=== PATIENT | female | born 1960 | race Caucasian/White ===

== ENCOUNTER 2019-02-17 10:09 | Outpatient (CLI) | payer MEDICAID, SELFPAY ==
--- NOTE | 2019-02-17 10:14 | USCV_ITS ---
Antonio Danielle Age: 58 Gender: F : 1960 Exam Date: 02/17/2019 10:10 Ordering Phys: Jaxon James MD ([email or web address]) Technologist: Courtney Butler Exam Location: [facility] – [place] Indication: KNOWN AAA RECHECK HISTORY: Recheck of AAA Diameter (cm) AP x Transverse x Length Velocity (cm/s) Waveform Prox Aorta: 2.19 x 1.77 x 50.60 Mid Aorta: 4.01 x 3.39 x 6.69 34.65 Distal Aorta: 3.24 x 3.42 x 4.38 53.40 Right Iliac Prox: 0.81 x 0.84 x 188.50 Left Iliac Prox: 0.78 x 0.90 x 117.70 Stent Prox Landing x x Aneurysmal Sac Max x x Lt Lat Sac Dim Rt Lat Sac Dim Stent Dist Landing x x Right Iliac Stent x x Left Iliac Stent x x Right Renal Art Left Renal Art FINDINGS: Bilobed AAA measures 4.0 x 3.4cm in the mid aorta and 3.2 x 3.4cm in the distal aorta. Moderate atheromatous disease. CONCLUSIONS Bilobed AAA ucnhanged since CT 01/01/19 Phillip Jackson MD (Electronically Signed) Final Date: 17 February 2019 16:39 S
== END 2019-02-17 10:10 | disposition home or self-care (01) ==
LOC: RAD 10:11
PROVIDERS: Family Provider Nurse Practitioner Family; PCP Nurse Practitioner Family; Visit Provider Internal Medicine Cardiovascular Disease
DX: I71.4 Abdominal aortic aneurysm, without rupture (principal)
CPT/HCPCS: 93978

== ENCOUNTER → 2019-04-24 11:26 | Outpatient (BNVA) | payer MEDICAID, SELFPAY | PROVIDERS: Family Provider Nurse Practitioner Family; PCP Nurse Practitioner Family; Visit Provider Nurse Practitioner Family | DX: R91.1 Solitary pulmonary nodule (principal); E03.9 Hypothyroidism, unspecified; E55.9 Vitamin D deficiency, unspecified; Z79.899 Other long term (current) drug therapy; E78.2 Mixed hyperlipidemia; I10 Essential (primary) hypertension | CPT/HCPCS: 80053; 80061; 81001; 82306; 83036; 84443; 85025 ==

== ENCOUNTER → 2019-04-29 13:10 | Outpatient (BNVA) | payer MEDICAID, SELFPAY | PROVIDERS: Family Provider Nurse Practitioner Family; PCP Nurse Practitioner Family; Visit Provider Otolaryngology | DX: K13.79 Other lesions of oral mucosa (principal); F17.210 Nicotine dependence, cigarettes, uncomplicated | CPT/HCPCS: 99203; 99214 ==

== ENCOUNTER 2019-06-13 13:15 | Outpatient (CLI) | payer MEDICAID, SELFPAY ==
--- NOTE | 2019-06-13 13:30 | CT_ITS ---
WS: [id number] CT CHEST TECHNIQUE: Noncontrast CT of the chest with coronal and sagittal reformatted images. CLINICAL INFORMATION: lung nodule COMPARISON: CTA chest October 21, [address] abdomen pelvis January 01, 2019 DLP: 565.[address] scans at [facility] use at least one of these dose optimization techniques: automat ed exposure control; mA and/or kV adjustment per patient size (includes targeted exams where dose is matched to clinical indication); or iterative reconstruction. FINDINGS: Again seen is the noncalcified subpleural pulmonary nodule in the right lung base measuring 8 mm. Thi s is unchanged since January 01, 2019 but new from 2014. Previously described right lower lobe infil trates have improved small amount of residual groundglass infiltrate/slight hazy atelectasis. No cons olidation. Additional noncalcified subpleural pulmonary nodules in the superior segment right lower lobe measuri ng 6 mm which is stable since October 21, 2014. Additional right lower lobe subpleural pulmonary no dule measuring 5.3 mm was not present in 2014. 2-3 additional noncalcified 3 to 4 mm hazy groundglass nodules in the super segment left lower lobe a long the fissure. Moderate chronic emphysematous changes. No other suspicious pulmonary opacities. No mediastinal or hi lar lymphadenopathy. Sternotomy. Normal caliber thoracic aorta. Calcification. Coronary calcification . Normal endobronchial tree. Adrenal glands are normal. Right renal cortical atrophy. Partially visua lized aneurysmal abdominal aorta described on the CT abdomen pelvis January 01, 2019. CT/CT chest wo con [id number] IMPRESSION: 1. 3 noncalcified subpleural pulmonary nodules one in the superior segment rig ht lower lobe measuring 6 mm with additional nodules in the right lower lobe po steriorly measuring 8 mm. Additional right lower lobe subpleural nodule measuri ng 5.3 mm. Recommend 6 month follow-up. 2. 2-3 additional noncalcified 3 to 4 mm hazy groundglass nodules in the super segment left lower lobe along the fissure. Recommend 6 month follow-up. 3. Improved right lower lobe infiltrate with a small amount of residual ground glass opacities/atelectasis. 4. No mediastinal or hilar lymphadenopathy. 5. Aneurysmal upper abdominal aorta described on the prior CT abdomen pelvis. .
== END 2019-06-13 13:16 | disposition home or self-care (01) ==
LOC: RADWPI 13:18
PROVIDERS: Family Provider Nurse Practitioner Family; PCP Nurse Practitioner Family; Visit Provider Nurse Practitioner Family
DX: R91.1 Solitary pulmonary nodule (principal); I71.4 Abdominal aortic aneurysm, without rupture
CPT/HCPCS: 71250

== ENCOUNTER → 2019-06-23 12:05 | Outpatient (BNVA) | payer MEDICAID, SELFPAY | PROVIDERS: Family Provider Nurse Practitioner Family; PCP Nurse Practitioner Family; Visit Provider Nurse Practitioner Family | DX: K13.79 Other lesions of oral mucosa (principal); E03.9 Hypothyroidism, unspecified; I10 Essential (primary) hypertension; B35.1 Tinea unguium | CPT/HCPCS: 80053; 84443; 85025 ==

== ENCOUNTER → 2019-07-10 07:33 | Outpatient (BNVA) | payer MEDICAID, SELFPAY | PROVIDERS: Family Provider Nurse Practitioner Family; PCP Nurse Practitioner Family; Visit Provider Nurse Practitioner Psychiatric/Mental Health | DX: F33.1 Major depressive disorder, recurrent, moderate (principal); F41.1 Generalized anxiety disorder; F12.90 Cannabis use, unspecified, uncomplicated; F17.210 Nicotine dependence, cigarettes, uncomplicated | CPT/HCPCS: 99214 ==

== ENCOUNTER → 2019-07-11 10:19 | Outpatient (BNVA) | payer MEDICAID, SELFPAY | PROVIDERS: Family Provider Nurse Practitioner Family; PCP Nurse Practitioner Family; Visit Provider Nurse Practitioner Family | DX: N39.0 Urinary tract infection, site not specified (principal); I10 Essential (primary) hypertension | CPT/HCPCS: 36415; 81001 ==

== ENCOUNTER 2019-07-14 15:15 | Outpatient (CLI) | payer MEDICAID, SELFPAY ==
--- NOTE | 2019-07-14 15:19 | US_ITS ---
WS: [id number] RENAL ULTRASOUND HISTORY: CHRONIC KIDNEY DISEASE STAGE 4 COMPARISON: 11/08/2018 TECHNIQUE: 2-D and color Doppler imaging of the kidney submitted. Right kidney: 7.8 cm x 3.5 cm x 3.6 cm. Mild atrophy of the RIGHT kidney with cortical thinning. Echogenicity is increased. Left kidney: 9.5 cm x 4.1 cm x 4.3 cm. Mild atrophy of the kidney. No hydronephrosis. There is increased echogenicity throughout the kidney. Simple cyst from the inferior pole measures 1.6 x 1.6 x 1.6 cm. Aorta: Abdominal aortic aneurysm with a maximum diameter of 3.8 cm. Aneurysm has been previously desc ribed. Urinary Bladder: Nondistended. US/ renal BI* [id number] IMPRESSION: Mild renal atrophy and mild cortical thinning. Similar to the prior study from 11/08/2018. Known abdominal aortic aneurysm.
== END 2019-07-14 15:16 | disposition home or self-care (01) ==
LOC: RAD 15:17
PROVIDERS: Family Provider Nurse Practitioner Family; PCP Nurse Practitioner Family; Visit Provider Internal Medicine Nephrology
DX: N18.4 Chronic kidney disease, stage 4 (severe) (principal); N26.1 Atrophy of kidney (terminal); I71.4 Abdominal aortic aneurysm, without rupture
CPT/HCPCS: 76770; 81001

== ENCOUNTER → 2019-08-20 07:39 | Outpatient (BNVA) | payer MEDICAID, SELFPAY | PROVIDERS: Family Provider Nurse Practitioner Family; PCP Nurse Practitioner Family; Visit Provider Nurse Practitioner Psychiatric/Mental Health | DX: F33.1 Major depressive disorder, recurrent, moderate (principal); F41.1 Generalized anxiety disorder; F12.90 Cannabis use, unspecified, uncomplicated; F17.210 Nicotine dependence, cigarettes, uncomplicated | CPT/HCPCS: 99214 ==

== ENCOUNTER → 2019-09-25 12:07 | Outpatient (BNVA) | payer MEDICAID, SELFPAY | PROVIDERS: Family Provider Nurse Practitioner Family; PCP Nurse Practitioner Family; Visit Provider Nurse Practitioner Family | DX: I12.9 Hypertensive chronic kidney disease with stage 1 through stage 4 chronic kidney disease, or unspecified chronic kidney disease (principal); N18.4 Chronic kidney disease, stage 4 (severe); E55.9 Vitamin D deficiency, unspecified; E78.2 Mixed hyperlipidemia; E03.9 Hypothyroidism, unspecified | CPT/HCPCS: 80053; 80061; 82306; 83036; 84443; 85025 ==

== ENCOUNTER → 2019-10-01 07:33 | Outpatient (BNVA) | payer MEDICAID, SELFPAY | PROVIDERS: Family Provider Nurse Practitioner Family; PCP Nurse Practitioner Family; Visit Provider Nurse Practitioner Psychiatric/Mental Health | DX: F33.1 Major depressive disorder, recurrent, moderate (principal); F41.1 Generalized anxiety disorder; F12.90 Cannabis use, unspecified, uncomplicated; F17.210 Nicotine dependence, cigarettes, uncomplicated; F90.2 Attention-deficit hyperactivity disorder, combined type | CPT/HCPCS: 99213 ==

== ENCOUNTER → 2019-12-24 07:25 | Outpatient (BNVA) | payer MEDICAID, SELFPAY | PROVIDERS: Family Provider Nurse Practitioner Family; PCP Nurse Practitioner Family; Visit Provider Nurse Practitioner Psychiatric/Mental Health | DX: F33.1 Major depressive disorder, recurrent, moderate (principal); F41.1 Generalized anxiety disorder; F12.90 Cannabis use, unspecified, uncomplicated; F17.210 Nicotine dependence, cigarettes, uncomplicated | CPT/HCPCS: 99213 ==

== ENCOUNTER → 2020-03-19 09:02 | Outpatient (BNVA) | payer MEDICAID, SELFPAY | PROVIDERS: Family Provider Nurse Practitioner Family; PCP Nurse Practitioner Family; Visit Provider Nurse Practitioner Psychiatric/Mental Health | DX: F33.1 Major depressive disorder, recurrent, moderate (principal); F41.1 Generalized anxiety disorder; F12.90 Cannabis use, unspecified, uncomplicated; F17.210 Nicotine dependence, cigarettes, uncomplicated | CPT/HCPCS: 99213 ==

== ENCOUNTER → 2020-06-11 07:33 | Outpatient (BNVA) | payer MEDICAID, SELFPAY | PROVIDERS: Family Provider Nurse Practitioner Family; PCP Nurse Practitioner Family; Visit Provider Nurse Practitioner Psychiatric/Mental Health | DX: F33.1 Major depressive disorder, recurrent, moderate (principal); F41.1 Generalized anxiety disorder; F12.90 Cannabis use, unspecified, uncomplicated; F17.210 Nicotine dependence, cigarettes, uncomplicated | CPT/HCPCS: 99214 ==

== ENCOUNTER → 2020-08-11 11:24 | Outpatient (BNVA) | payer MEDICAID, SELFPAY | PROVIDERS: Family Provider Nurse Practitioner Family; PCP Nurse Practitioner Family; Visit Provider Nurse Practitioner Family | DX: E78.2 Mixed hyperlipidemia (principal); N39.0 Urinary tract infection, site not specified; I10 Essential (primary) hypertension; Z79.899 Other long term (current) drug therapy; E55.9 Vitamin D deficiency, unspecified; E03.9 Hypothyroidism, unspecified | CPT/HCPCS: 80053; 80061; 81003; 82306; 83036; 84443; 85025; 87086 ==

== ENCOUNTER → 2020-09-07 07:10 | Outpatient (BNVA) | payer MEDICAID, SELFPAY | PROVIDERS: Family Provider Nurse Practitioner Family; PCP Nurse Practitioner Family; Visit Provider Nurse Practitioner Psychiatric/Mental Health | DX: F33.1 Major depressive disorder, recurrent, moderate (principal); F41.1 Generalized anxiety disorder; F12.90 Cannabis use, unspecified, uncomplicated; F17.210 Nicotine dependence, cigarettes, uncomplicated | CPT/HCPCS: 99214 ==

== ENCOUNTER 2020-11-17 08:44 | Outpatient (CLI) | payer MEDICAID, SELFPAY ==
[2020-11-17 10:07] LABS: Blood Urea Nitrogen 22 mg/dL (6-20); Glomerular Filtration Rate 28.9 mL/min (90-130)
== END 2020-11-17 08:45 | disposition home or self-care (01) ==
PROVIDERS: PCP Nurse Practitioner Family; Visit Provider Internal Medicine Cardiovascular Disease
DX: Z01.812 Encounter for preprocedural laboratory examination (principal)
CPT/HCPCS: 82565; 84520

== ENCOUNTER → 2020-12-07 08:14 | Outpatient (BNVA) | payer MEDICAID, SELFPAY | PROVIDERS: Family Provider Nurse Practitioner Family; PCP Nurse Practitioner Family; Visit Provider Nurse Practitioner Psychiatric/Mental Health | DX: F33.1 Major depressive disorder, recurrent, moderate (principal); F41.1 Generalized anxiety disorder; F12.90 Cannabis use, unspecified, uncomplicated; F17.210 Nicotine dependence, cigarettes, uncomplicated | CPT/HCPCS: 99214 ==

== ENCOUNTER 2020-12-13 07:47 | Outpatient (CLI) | payer MEDICAID, SELFPAY ==
--- NOTE | 2020-12-13 08:00 | USCV_ITS ---
Danielle Alvarez Age: 60 Gender: F : 1960 Exam Date: 12/13/2020 07:59 Ordering Phys: Rosalinda Cano Technologist: Berna Bennett Exam Location: [facility] – [place] Indication: AAA Without rupture HISTORY: Diameter (cm) AP x Transverse x Length Velocity (cm/s) Waveform Prox Aorta: 3.08 x 3.88 x 59.00 Mid Aorta: 4.44 x 5.13 x 7.93 23.00 Distal Aorta: 3.65 x 4.35 x 87.60 Right Iliac Prox: 0.76 x 0.71 x 154.80 Left Iliac Prox: 0.69 x 1.05 x 92.30 Stent Prox Landing x x Aneurysmal Sac Max x x Lt Lat Sac Dim Rt Lat Sac Dim Stent Dist Landing x x Right Iliac Stent x x Left Iliac Stent x x Right Renal Art Left Renal Art FINDINGS: Comparison:. 02/18/20. Bilobe AAA with mild increase in diameter since the prior exam. Mild eccentric soft plaque within the aorta. Mid aorta dilatation measeures 4.4 x 5.1 cm. Distal aorta dilatation measures 3.7 x 4.4 cm. No iliac artery aneurysm. CONCLUSIONS Bilobed AAA with mild increase in size since the prior exam. Maximum diameter of 4.[address] Alejandra Denise DO (Electronically Signed) Final Date: 13 December 2020 08:27 S
== END 2020-12-13 07:48 | disposition home or self-care (01) ==
LOC: US 07:49
PROVIDERS: PCP Nurse Practitioner Family; Visit Provider Nurse Practitioner Family
DX: I71.4 Abdominal aortic aneurysm, without rupture (principal)
CPT/HCPCS: 93978

== ENCOUNTER → 2021-01-20 11:54 | Outpatient (BNVA) | payer MEDICAID, SELFPAY | PROVIDERS: PCP Nurse Practitioner Family; Visit Provider Nurse Practitioner Family | DX: E03.9 Hypothyroidism, unspecified (principal) | CPT/HCPCS: 84443 ==

== ENCOUNTER → 2021-03-08 07:17 | Outpatient (BNVA) | payer MEDICAID, SELFPAY | PROVIDERS: PCP Nurse Practitioner Family; Visit Provider Nurse Practitioner Psychiatric/Mental Health | DX: F33.1 Major depressive disorder, recurrent, moderate (principal); F41.1 Generalized anxiety disorder; F12.90 Cannabis use, unspecified, uncomplicated; F17.210 Nicotine dependence, cigarettes, uncomplicated | CPT/HCPCS: 99214 ==

== ENCOUNTER 2021-03-29 10:25 | Outpatient (CLI) | payer MEDICAID, SELFPAY ==
[2021-03-29 11:38] LABS: Blood Urea Nitrogen 16 mg/dL (6-20); Glomerular Filtration Rate 30.8 mL/min (90-130)
== END 2021-03-29 10:26 | disposition home or self-care (01) ==
LOC: RAD 10:27
PROVIDERS: PCP Nurse Practitioner Family; Visit Provider Thoracic Surgery (Cardiothoracic Vascular Surgery)
DX: I71.4 Abdominal aortic aneurysm, without rupture (principal)
CPT/HCPCS: 82565; 84520

== ENCOUNTER 2021-04-08 10:00 | Outpatient (CLI) | payer MEDICAID, SELFPAY ==
--- NOTE | 2021-04-08 10:07 | CT_ITS ---
WS: [id number] CT ANGIOGRAPHY abdomen and pelvis. HISTORY: I71.4 - Abdominal aortic aneurysm, without rupture TECHNIQUE: CT angiogram is performed during IV injection. Reformation images reviewed. All CT scans a [facility] use at least one of these dose optimization techniques: automated exposure contro l; mA and/or kV adjustment per patient size (includes targeted exams where dose is matched to clinica l indication); or iterative reconstruction. CONTRAST: Visipaque 320; 95 mL IV. DLP: 721.89 mGy.cm COMPARISON: 12/04/2020, 01/01/2019 Mild dependent changes at the lung bases. 7 mm pleural nodule at the RIGHT lung base. No change since 01/01/2019. There is mild groundglass attenuation at the RIGHT lung base due to atelectasis. Heart s ize is moderately enlarged. Small hiatal hernia. Tricuspid regurgitation into hepatic veins. Abdominal aorta: Marked tortuosity and ectasia of the abdominal aorta. Beginning at the diaphragmatic hiatus the aorta demonstrates mild diffuse atherosclerotic change with calcification and mural throm bus. Mild narrowing at the origin of the celiac axis with poststenotic dilatation. Similar to the isidro or examination with no progression. Probably 50% stenosis origin of the SMA. There is significant albert que and stenosis involving the origin of the renal arteries bilaterally. There is high-grade stenosis if not near complete occlusion involving the LEFT main renal artery. LEFT kidney is atrophic with de creased enhancement. Hyperdense nodule at the lower pole is stable. Heavy calcified plaque and intima l thickening at the origin of the RIGHT renal artery. Beginning at the level of the renal arteries the abdominal aorta becomes dilated and tortuous. Maximu m transverse diameter is approximately 4.7 x 4.1 cm. Similar to the prior study of 12/04/2020. Mild i ncrease in the amount of thrombus. No dissection. There is a focal narrowing involving the lumen of t he aorta at the level of L3. Additional tandem aneurysmal dilatation with a maximum diameter of 4.2 x 3.8 cm which is also unchanged and not progressed. Aneurysm tapers to the bifurcation. Moderate calc ified plaque in the region of the bifurcations and proximal iliac arteries. Calcified plaque continue s into the external iliac arteries. Greater than 50% stenosis involving the proximal RIGHT SFA. There is no evidence for leak or periaortic hematoma. Early enhancement imaging through the liver is negative. Normal spleen. Prior cholecystectomy. Poorly visualized pancreas. The pancreas is atrophic. No adrenal mass. No GI tract obstruction. Diverticula r disease without diverticulitis. No free fluid. No adenopathy identified. CT/CT angio abdomen pelvis [id number] IMPRESSION: 1. Again noted is the bilobed aortic aneurysm. Maximum diameter of the aneurys m beginning at the level of the renal arteries is 4.7 x 4.1 cm. Aneurysm tapers and the more inferior aneurysm dilatation measures 4.2 x 3.8 cm. Very similar to the study of 12/04/2020. No evidence for rupture. 2. 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 Very limited enhancement of the L EFT kidney due to the high-grade arterial stenosis or occlusion. There was bett er enhancement of the LEFT kidney on the prior study suggesting continued obstr uction of the renal artery. 3. There is at least moderate if not severe stenosis involving the RIGHT proxi mal renal artery although there is enhancement throughout the renal cortex. 4. Groundglass attenuation at the RIGHT lung base and stable pleural nodule. 5. Tricuspid regurgitation. 6. Prior cholecystectomy. 7. 60% stenosis proximal RIGHT SFA. 8. Additional, at least moderate atherosclerotic changes involving the origins of the SMA and celiac axis.
[2021-04-08] MEDS: iodixanol 320 mg/mL 100mL Btl IV (10:32)
== END 2021-04-08 10:01 | disposition home or self-care (01) ==
LOC: RAD 10:02
PROVIDERS: PCP Nurse Practitioner Family; Visit Provider Thoracic Surgery (Cardiothoracic Vascular Surgery)
DX: I71.4 Abdominal aortic aneurysm, without rupture (principal); Z90.49 Acquired absence of other specified parts of digestive tract; I07.1 Rheumatic tricuspid insufficiency; N28.0 Ischemia and infarction of kidney
CPT/HCPCS: 74174

== ENCOUNTER → 2021-05-06 15:00 | Outpatient (BNVA) | payer MEDICAID, SELFPAY | PROVIDERS: PCP Nurse Practitioner Family; Visit Provider Obstetrics & Gynecology | DX: R10.2 Pelvic and perineal pain (principal) | CPT/HCPCS: 83001; 84403; 84443 ==

== ENCOUNTER 2021-05-16 13:26 | Outpatient (CLI) | payer MEDICAID, SELFPAY ==
--- NOTE | 2021-05-16 13:45 | US_ITS ---
WS: [id number] TRANSABDOMINAL PELVIC AND TRANSVAGINAL PELVIC ULTRASOUND HISTORY: R10.2 - Pelvic and perineal pain COMPARISON: None available. Uterus: 6.3 cm x 4.5 cm x 3.0 cm. Small anteverted uterus. Heterogeneous lobular appearance of the my ometrium seen best on transabdominal imaging. There are multiple ill-defined and partially obscured m yometrial masses. The largest from the LEFT lateral uterus measuring 2.2 x 1.9 x 2.1 cm. Additional f ibroid in the LEFT uterus and also a partially exophytic fibroid from the posterior uterus extending towards the cul-de-sac. Endometrium: Not visualized. Neither ovary is definitely visualized. No adnexal masses.No ascites or free fluid. US/US pelvic with transvaginal IMPRESSION: 1. Heterogeneous uterus with multiple fibroids. 2. Endometrium cannot be evaluated accurately. 3. Neither ovary identified.
== END 2021-05-16 13:27 | disposition home or self-care (01) ==
LOC: RAD 13:27
PROVIDERS: PCP Nurse Practitioner Family; Visit Provider Obstetrics & Gynecology
DX: R10.2 Pelvic and perineal pain (principal); D25.9 Leiomyoma of uterus, unspecified
CPT/HCPCS: 76830; 76856

== ENCOUNTER → 2021-05-31 07:14 | Outpatient (BNVA) | payer MEDICAID, SELFPAY | PROVIDERS: PCP Nurse Practitioner Family; Visit Provider Nurse Practitioner Psychiatric/Mental Health | DX: F33.1 Major depressive disorder, recurrent, moderate (principal); F41.1 Generalized anxiety disorder; F12.90 Cannabis use, unspecified, uncomplicated; F17.210 Nicotine dependence, cigarettes, uncomplicated | CPT/HCPCS: 99214 ==

== ENCOUNTER → 2021-10-27 09:57 | Outpatient (BNVA) | payer MEDICAID, SELFPAY | PROVIDERS: PCP Nurse Practitioner Family; Visit Provider Internal Medicine Cardiovascular Disease | DX: I25.10 Atherosclerotic heart disease of native coronary artery without angina pectoris (principal); I71.4 Abdominal aortic aneurysm, without rupture; F33.1 Major depressive disorder, recurrent, moderate; F12.90 Cannabis use, unspecified, uncomplicated; F17.210 Nicotine dependence, cigarettes, uncomplicated; E78.5 Hyperlipidemia, unspecified; I12.9 Hypertensive chronic kidney disease with stage 1 through stage 4 chronic kidney disease, or unspecified chronic kidney disease; N18.4 Chronic kidney disease, stage 4 (severe) | CPT/HCPCS: 93005; 99214 ==

== ENCOUNTER → 2022-01-18 13:22 | Outpatient (BNVA) | payer MEDICAID, SELFPAY | PROVIDERS: PCP Nurse Practitioner; Visit Provider Nurse Practitioner | DX: E03.9 Hypothyroidism, unspecified (principal) | CPT/HCPCS: 84443 ==

== ENCOUNTER 2022-01-24 09:06 | Outpatient (CLI) | payer MEDICAID, SELFPAY ==
--- NOTE | 2022-01-24 09:15 | USCV_ITS ---
Danielle Alvarez Age: 61 Gender: F : 1960 Exam Date: 01/24/2022 09:26 Ordering Phys: Colt Yung MD ([email or web address]) Technologist: SHIRAZ [place] [facility] [place]: AAA HISTORY: Diameter (cm) AP x Transverse x Length Velocity (cm/s) Waveform Prox Aorta: 3.31 x 3.78 x 59.50 Mid Aorta: 4.76 x 4.84 x 8.25 52.90 Distal Aorta: 3.89 x 4.01 x 5.23 147.40 Right Iliac Prox: 0.78 x 0.73 x 188.50 Left Iliac Prox: 0.69 x 0.63 x 153.90 Stent Prox Landing x x Aneurysmal Sac Max x x Lt Lat Sac Dim Rt Lat Sac Dim Stent Dist Landing x x Right Iliac Stent x x Left Iliac Stent x x Right Renal Art Left Renal Art FINDINGS: Comparison:. 12/13/20. Large bilobed AAA. Length of 8.2 cm. Mid AAA : 4.8 x 4.7 cm. Inferior AAA: 4.0 x 3.9 cm. Slight increase in size of the superior AAA. Lumen in patent with plaque. CONCLUSIONS Large bilobed AAA. Slight increase in size of the superior aneurysm. Maximum diameter of 4.[address] Alejandra Denise DO (Electronically Signed) Final Date: 24 January 2022 10:19 S
== END 2022-01-24 09:07 | disposition home or self-care (01) ==
LOC: RAD 09:08
PROVIDERS: PCP Nurse Practitioner; Visit Provider Internal Medicine Cardiovascular Disease
DX: I71.40 Abdominal aortic aneurysm, without rupture, unspecified (principal)
CPT/HCPCS: 93978

== ENCOUNTER 2022-06-22 13:48 | Outpatient (CLI) | payer MEDICAID, SELFPAY ==
[2022-06-22 14:12] VITALS: PULSE 73; RESP 18; O2SAT 96
[2022-06-22] MEDS: albuterol 2.5 mg/3 mL Neb INHALATION (14:12)
[2022-06-22 14:17] VITALS: PULSE 81
== END 2022-06-22 13:49 | disposition home or self-care (01) ==
PROVIDERS: PCP Nurse Practitioner; Visit Provider Surgery Vascular Surgery
DX: R06.02 Shortness of breath (principal); I71.40 Abdominal aortic aneurysm, without rupture, unspecified; F17.210 Nicotine dependence, cigarettes, uncomplicated; Z01.818 Encounter for other preprocedural examination
CPT/HCPCS: 94060; 94726; 94729; J7613

== ENCOUNTER → 2022-08-22 13:50 | Outpatient (BNVA) | payer MEDICAID, SELFPAY | PROVIDERS: PCP Nurse Practitioner; Visit Provider Internal Medicine Cardiovascular Disease | DX: I10 Essential (primary) hypertension (principal); Z98.890 Other specified postprocedural states; E78.2 Mixed hyperlipidemia; E03.9 Hypothyroidism, unspecified; F17.210 Nicotine dependence, cigarettes, uncomplicated | CPT/HCPCS: 99214 ==

== ENCOUNTER → 2023-02-28 09:20 | Outpatient (BNVA) | payer MEDICAID, SELFPAY | PROVIDERS: PCP Nurse Practitioner; Visit Provider Nurse Practitioner Family | DX: I10 Essential (primary) hypertension (principal); E78.2 Mixed hyperlipidemia; E03.9 Hypothyroidism, unspecified; Z79.899 Other long term (current) drug therapy | CPT/HCPCS: 80053; 80061; 81003; 83036; 84443; 85025; 87086 ==

== ENCOUNTER → 2023-03-01 09:28 | Outpatient (BNVA) | payer MEDICAID, SELFPAY | PROVIDERS: PCP Nurse Practitioner; Visit Provider Internal Medicine Cardiovascular Disease | DX: I25.10 Atherosclerotic heart disease of native coronary artery without angina pectoris (principal); I12.9 Hypertensive chronic kidney disease with stage 1 through stage 4 chronic kidney disease, or unspecified chronic kidney disease; N18.4 Chronic kidney disease, stage 4 (severe); E78.5 Hyperlipidemia, unspecified; J44.9 Chronic obstructive pulmonary disease, unspecified; F12.90 Cannabis use, unspecified, uncomplicated; Z98.890 Other specified postprocedural states; I71.40 Abdominal aortic aneurysm, without rupture, unspecified | CPT/HCPCS: 99214 ==